=== PATIENT | female | born 1980 | race Caucasian/White ===

== ENCOUNTER 2021-03-25 12:36 | Inpatient (IN) ==
[2021-03-25 13:18] LABS: Bilirubin,Urine Negative (Negative); Blood,Urine Negative (Negative); Clarity,Urine Clear (Clear); Color,Urine Light-Yellow (Yellow); Glucose,Urine (UA) Normal (Normal); Ketones,Urine Negative (Negative); Leukocyte Esterase,Urine Negative (Negative); Nitrite,Urine Negative (Negative); PH,Urine 6.5 pH Units (5.0-8.0); Protein,Urine Negative (Neg-Trace); Specific Gravity,Urine 1.011 (1.010-1.025); Urobilinogen,Urine Normal (Normal)
[2021-03-25 13:28] LABS: Amphetamine Screen,Urine Positive ng/mL (Cutoff=1000); Barbiturate Screen,Urine Negative ng/mL (Cutoff=200); Benzodiazepines Screen,Urine Positive ng/mL (Cutoff=200); Cannabinoid Screen,Urine Negative ng/mL (Cutoff = 50); Cocaine Screen,Urine Negative ng/mL (Cutoff= 300); Opiate Screen,Urine Negative ng/mL (Cutoff=300); Phencyclidine Screen,Urine Negative ng/mL (Cutoff=25)
[2021-03-25 14:17] LABS: Basophils % 0.4 %; Eosinophils # 0.2 K/mcL (0.0-0.6); Hematocrit 43.4 % (35.3-44.9); Hemoglobin 14.9 g/dL (11.5-15.4); Immature Granulocytes % 0.9 % (0-4); Lymphocytes % 30.1 %; Mean Corpuscular HGB Conc 34.3 g/dL (31.6-35.5); Mean Corpuscular Hemoglobin 31.4 pg (28.0-33.3); Mean Corpuscular Volume 91.4 fL (83.0-100.0); Mean Platelet Volume 9.8 fL (9.4-12.4); Monocytes # 0.4 K/mcL (0.0-1.3); Monocytes % 6.6 %; Platelet Count 214 K/mcL (140-400); Red Blood Count 4.75 M/mcL (3.82-4.97); White Blood Count 6.7 K/mcL (4.3-11.1)
[2021-03-25 14:22] LABS: Acetaminophen < 10 mcg/mL (10-20); BUN/Creatinine Ratio 15 (6-26); Blood Urea Nitrogen 15 mg/dL (6-20); Calcium 9.9 mg/dL (8.6-10.3); Carbon Dioxide 28 mEq/L (23-29); Chloride 104 mEq/L (98-107); Chol/HDL Ratio 4.1 (0-4.9); Cholesterol 175 mg/dL (< 200); Ethanol < 10 mg/dL (Less than 10); Glucose 89 mg/dL (70-105); HDL Cholesterol 43 mg/dL (40-59); LDL Cholesterol,Calculated 114 mg/dL (< 100); Osmolality,Calculated 288 (280-300); Potassium 3.7 mEq/L (3.5-5.1); Salicylate < 2.5 mg/dL (15.0-30.0); Sodium 139 mEq/L (136-145); Triglycerides 88 mg/dL (< 150); eGFR For African Americans > 60 (> 60); eGFR For Non-African Americans 59 (> 60)
[2021-03-25 16:16] LABS: Estimated Average Glucose 111 mg/dl; Hemoglobin A1C 5.5 %
[2021-03-25] MEDS ORDERED: Naloxone 0.4 MG/ML INJ IVP PRN (17:14)
[2021-03-25] MEDS ORDERED: Ondansetron 4 MG/2 ML VIAL IVP PRN (17:39)
[2021-03-25] MEDS ORDERED: *HR* Labetalol 20 MG/4 ML SYRINGE IVP PRN (18:16)
[2021-03-25] MEDS: Acetaminophen 325 MG TABLET PO PRN (22:39)
[2021-03-26] MEDS ORDERED: Haloperidol Lactate 5 MG/ML VIAL IVP ONE (02:32)
[2021-03-26 03:30] LABS: Basophils # 0.1 K/mcL (0.0-0.2); Basophils % 0.7 %; Eosinophils # 0.2 K/mcL (0.0-0.6); Eosinophils % 2.7 %; Hematocrit 44.4 % (35.3-44.9); Hemoglobin 14.4 g/dL (11.5-15.4); Immature Granulocytes % 0.1 % (0-4); Lymphocytes # 2.2 K/mcL (0.6-4.6); Lymphocytes % 28.1 %; Mean Corpuscular HGB Conc 32.4 g/dL (31.6-35.5); Mean Corpuscular Hemoglobin 29.8 pg (28.0-33.3); Mean Corpuscular Volume 91.7 fL (83.0-100.0); Mean Platelet Volume 9.8 fL (9.4-12.4); Monocytes # 0.6 K/mcL (0.0-1.3); Neutrophils # 4.6 K/mcL (1.6-8.9); Platelet Count 224 K/mcL (140-400); Red Blood Count 4.84 M/mcL (3.82-4.97); Red Cell Distribution Width 13.1 % (11.5-14.5); Segmented Neutrophils % 60.4 %; White Blood Count 7.6 K/mcL (4.3-11.1)
[2021-03-26 03:48] LABS: BUN/Creatinine Ratio 13 (6-26); Blood Urea Nitrogen 12 mg/dL (6-20); Calcium 9.8 mg/dL (8.6-10.3); Carbon Dioxide 25 mEq/L (23-29); Chloride 104 mEq/L (98-107); Glucose 90 mg/dL (70-105); Magnesium 2.2 mg/dL (1.6-2.6); Osmolality,Calculated 285 (280-300); Potassium 3.7 mEq/L (3.5-5.1); Sodium 138 mEq/L (136-145); eGFR For African Americans > 60 (> 60); eGFR For Non-African Americans > 60 (> 60)
[2021-03-26 03:59] LABS: Thyroid Stimulating Hormone 2.487 mcIU/mL (0.340-5.600)
[2021-03-26] MEDS: *HR* Enoxaparin 40 MG/0.4 ML SYRINGE SQ SCH (09:40)
[2021-03-26] MEDS: Acetaminophen 325 MG TABLET PO PRN ×2 (09:40→19:53)
[2021-03-26] MEDS ORDERED: risperiDONE 1 MG TABLET PO SCH (21:00)
[2021-03-27] MEDS: *HR* Enoxaparin 40 MG/0.4 ML SYRINGE SQ SCH (10:32)
[2021-03-27] MEDS: Acetaminophen 325 MG TABLET PO PRN (19:39)
[2021-03-27] MEDS: Nicotine 21 MG PATCH.TD24 TD SCH (19:40)
[2021-03-27] MEDS ORDERED: risperiDONE 1 MG TABLET PO SCH (21:00)
[2021-03-28 08:46] VITALS: BP 145/81; PULSE 88; TEMP 98; O2SAT 100
[2021-03-28] MEDS ORDERED: Venlafaxine XR (24 HR) 75 MG CAP.ER.24H PO SCH (09:00)
[2021-03-28] MEDS ORDERED: amLODIPine 5 MG TABLET PO SCH (09:30)
[2021-03-28] MEDS: Nicotine 21 MG PATCH.TD24 TD SCH (10:12)
[2021-03-28] MEDS: *HR* Enoxaparin 40 MG/0.4 ML SYRINGE SQ SCH (10:13)
[2021-03-28] MEDS ORDERED: risperiDONE 1 MG TABLET PO SCH (21:00)
== END 2021-03-28 12:55 | DRG 751 ==
LOC: EMEROOARM 12:36 → INTOOBSV 17:24 → SUATTDRO 17:24 → 3BNU 17:24 → 3NENU 19:13
PROVIDERS: ADMIT Pharmacist; ATTEND Pharmacist

== ENCOUNTER 2021-03-28 12:35 | Inpatient (IN) ==
[2021-03-28] MEDS ORDERED: *HR* LORazepam 2 MG/ML VIAL IM PRN (12:44)
[2021-03-28] MEDS ORDERED: *HR* LORazepam 1 MG TABLET PO PRN (12:44)
[2021-03-28] MEDS ORDERED: haloperidoL 5 MG TABLET PO PRN (12:44)
[2021-03-28] MEDS ORDERED: Haloperidol Lactate 5 MG/ML VIAL IM PRN (12:44)
[2021-03-28] MEDS ORDERED: risperiDONE 1 MG TABLET PO SCH (21:00)
[2021-03-28] MEDS: Acetaminophen 325 MG TABLET PO PRN (21:09)
[2021-03-28] MEDS: hydrOXYzine pamoate 25 MG CAPSULE PO PRN (21:10)
[2021-03-28] MEDS: traZODone 50 MG TABLET PO PRN (21:10)
[2021-03-29] MEDS ORDERED: Nicotine 21 MG PATCH.TD24 TD SCH (09:00)
[2021-03-29] MEDS ORDERED: Venlafaxine XR (24 HR) 75 MG CAP.ER.24H PO SCH (09:00)
[2021-03-29] MEDS: amLODIPine 5 MG TABLET PO SCH (09:01)
[2021-03-29] MEDS: Nicotine 21 MG PATCH.TD24 TD SCH (09:02)
[2021-03-29] MEDS: hydrOXYzine pamoate 25 MG CAPSULE PO PRN (20:49)
[2021-03-29] MEDS: risperiDONE 1 MG TABLET PO SCH (20:49)
[2021-03-29] MEDS: Acetaminophen 325 MG TABLET PO PRN (20:49)
[2021-03-29] MEDS: traZODone 50 MG TABLET PO PRN (20:50)
[2021-03-30] MEDS: risperiDONE 1 MG TABLET PO SCH (09:28)
[2021-03-30] MEDS: Nicotine 21 MG PATCH.TD24 TD SCH (09:28)
[2021-03-30] MEDS: amLODIPine 5 MG TABLET PO SCH (09:28)
[2021-03-30 11:59] VITALS: BP 109/87; PULSE 109; TEMP 98.8; O2SAT 97
== END 2021-03-30 14:52 | disposition home or self-care (01) | DRG 751 ==
LOC: 1ANU 12:35
PROVIDERS: ADMIT Psychiatry & Neurology Psychiatry; ATTEND Psychiatry & Neurology Psychiatry

== ENCOUNTER 2021-04-14 13:43 | Inpatient (IN) ==
[2021-04-14 15:26] LABS: Basophils % 0.5 %; Eosinophils # 0.2 K/mcL (0.0-0.6); Eosinophils % 2.7 %; Hematocrit 40.1 % (35.3-44.9); Hemoglobin 13.4 g/dL (11.5-15.4); Immature Granulocytes % 0.4 % (0-4); Lymphocytes # 1.9 K/mcL (0.6-4.6); Lymphocytes % 24.6 %; Mean Corpuscular HGB Conc 33.4 g/dL (31.6-35.5); Mean Corpuscular Hemoglobin 30.9 pg (28.0-33.3); Mean Corpuscular Volume 92.4 fL (83.0-100.0); Mean Platelet Volume 9.4 fL (9.4-12.4); Monocytes # 0.6 K/mcL (0.0-1.3); Platelet Count 216 K/mcL (140-400); Red Blood Count 4.34 M/mcL (3.82-4.97); Red Cell Distribution Width 13.1 % (11.5-14.5); Segmented Neutrophils % 63.8 %; White Blood Count 7.8 K/mcL (4.3-11.1)
[2021-04-14 15:37] LABS: Estimated Average Glucose 111 mg/dl; Hemoglobin A1C 5.5 %
[2021-04-14 15:40] LABS: Bilirubin,Urine Negative (Negative); Blood,Urine Trace (Negative); Clarity,Urine Turbid (Clear); Color,Urine Yellow (Yellow); Glucose,Urine (UA) Normal (Normal); Ketones,Urine Negative (Negative); Leukocyte Esterase,Urine Large (Negative); Mucus,Urine Moderate per lpf (None-Few); Nitrite,Urine Negative (Negative); Protein,Urine 30 mg/dL (Neg-Trace); Specific Gravity,Urine 1.026 (1.010-1.025); Squamous Epithelial Cell,Urine Few per hpf (None-Few); WBC,Urine TNTC per hpf (0-3)
[2021-04-14 15:47] LABS: Amphetamine Screen,Urine Positive ng/mL (Cutoff=1000); Barbiturate Screen,Urine Negative ng/mL (Cutoff=200); Benzodiazepines Screen,Urine Negative ng/mL (Cutoff=200); Cannabinoid Screen,Urine Positive ng/mL (Cutoff = 50); Cocaine Screen,Urine Negative ng/mL (Cutoff= 300); Opiate Screen,Urine Negative ng/mL (Cutoff=300); Phencyclidine Screen,Urine Negative ng/mL (Cutoff=25)
[2021-04-14 16:01] LABS: Acetaminophen < 10 mcg/mL (10-20); BUN/Creatinine Ratio 13 (6-26); Blood Urea Nitrogen 18 mg/dL (6-20); Calcium 9.5 mg/dL (8.6-10.3); Carbon Dioxide 31 mEq/L (23-29); Chloride 101 mEq/L (98-107); Chol/HDL Ratio 4.3 (0-4.9); Cholesterol 167 mg/dL (< 200); Ethanol < 10 mg/dL (Less than 10); Glucose 101 mg/dL (70-105); HDL Cholesterol 39 mg/dL (40-59); LDL Cholesterol,Calculated 103 mg/dL (< 100); Osmolality,Calculated 288 (280-300); Potassium 3.8 mEq/L (3.5-5.1); Salicylate < 2.5 mg/dL (15.0-30.0); Sodium 138 mEq/L (136-145); Triglycerides 126 mg/dL (< 150); Troponin I < 0.03 ng/mL (< 0.04); eGFR For African Americans 52 (> 60); eGFR For Non-African Americans 43 (> 60)
[2021-04-14] MEDS ORDERED: 0.9 % Sodium Chloride 1,000 ML IVC STA (16:17)
[2021-04-14] MEDS ORDERED: cephALEXin 500 MG CAPSULE PO STA (17:18)
[2021-04-14 18:33] LABS: Blood Urea Nitrogen 17 mg/dL (6-20); Carbon Dioxide 23 mEq/L (23-29); Chloride 108 mEq/L (98-107); Glucose 95 mg/dL (70-105); Osmolality,Calculated 285 (280-300); Potassium 3.9 mEq/L (3.5-5.1); Sodium 137 mEq/L (136-145)
[2021-04-14 18:57] LABS: BUN/Creatinine Ratio 15 (6-26); eGFR For African Americans > 60 (> 60); eGFR For Non-African Americans 52 (> 60)
[2021-04-14 21:46] LABS: Influenza A PCR Negative (Negative); Influenza B PCR Negative (Negative); Resp. Syncytial Virus PCR Negative (Negative)
[2021-04-14 21:51] LABS: SARS-CoV-2 by PCR (In House) Negative (Negative)
[2021-04-14] MEDS ORDERED: haloperidoL 5 MG TABLET PO PRN (22:33)
[2021-04-14] MEDS ORDERED: *HR* LORazepam 2 MG/ML VIAL IM PRN (22:33)
[2021-04-14] MEDS ORDERED: hydrOXYzine pamoate 25 MG CAPSULE PO PRN (22:33)
[2021-04-14] MEDS ORDERED: *HR* LORazepam 1 MG TABLET PO PRN (22:33)
[2021-04-14] MEDS ORDERED: Haloperidol Lactate 5 MG/ML VIAL IM PRN (22:33)
[2021-04-15] MEDS: Acetaminophen 325 MG TABLET PO PRN ×2 (00:08→13:12)
[2021-04-15] MEDS: traZODone 50 MG TABLET PO PRN ×2 (00:08→20:40)
[2021-04-15] MEDS: amLODIPine 5 MG TABLET PO SCH (09:21)
[2021-04-15] MEDS: risperiDONE 1 MG TABLET PO SCH ×2 (09:21→20:40)
[2021-04-15] MEDS: Nicotine 21 MG PATCH.TD24 TD SCH (09:30)
[2021-04-15] MEDS ORDERED: MOM Conc 10 ML UD.LIQ PO PRN (09:36)
[2021-04-15] MEDS: Nitrofurantoin (BID) 100 MG CAPSULE PO SCH (17:33)
[2021-04-15] MEDS: hydrOXYzine pamoate 25 MG CAPSULE PO PRN (20:40)
[2021-04-16] MEDS: amLODIPine 5 MG TABLET PO SCH (08:43)
[2021-04-16] MEDS: Nitrofurantoin (BID) 100 MG CAPSULE PO SCH ×2 (08:43→21:18)
[2021-04-16] MEDS: Nicotine 21 MG PATCH.TD24 TD SCH (08:43)
[2021-04-16] MEDS: risperiDONE 1 MG TABLET PO SCH ×2 (08:43→21:18)
[2021-04-16] MEDS: Acetaminophen 325 MG TABLET PO PRN (16:02)
[2021-04-16] MEDS: traZODone 50 MG TABLET PO PRN (21:18)
[2021-04-16] MEDS: hydrOXYzine pamoate 25 MG CAPSULE PO PRN (21:18)
[2021-04-17] MEDS: Nicotine 21 MG PATCH.TD24 TD SCH (08:54)
[2021-04-17] MEDS: amLODIPine 5 MG TABLET PO SCH (08:55)
[2021-04-17] MEDS: Nitrofurantoin (BID) 100 MG CAPSULE PO SCH ×2 (08:55→16:05)
[2021-04-17] MEDS: risperiDONE 1 MG TABLET PO SCH ×2 (08:56→20:15)
[2021-04-17] MEDS: Acetaminophen 325 MG TABLET PO PRN ×2 (11:30→20:16)
[2021-04-17] MEDS: traZODone 50 MG TABLET PO SCH (20:15)
[2021-04-17] MEDS: hydrOXYzine pamoate 25 MG CAPSULE PO PRN (20:16)
[2021-04-18] MEDS: Nicotine 21 MG PATCH.TD24 TD SCH (09:38)
[2021-04-18] MEDS: risperiDONE 1 MG TABLET PO SCH ×2 (09:39→20:43)
[2021-04-18] MEDS: Nitrofurantoin (BID) 100 MG CAPSULE PO SCH ×2 (09:39→16:47)
[2021-04-18] MEDS: amLODIPine 5 MG TABLET PO SCH (09:40)
[2021-04-18] MEDS: Mag Hydrox/Al Hydrox/Simeth 30 ML UDC PO PRN (19:46)
[2021-04-18] MEDS: hydrOXYzine pamoate 25 MG CAPSULE PO PRN (20:43)
[2021-04-18] MEDS: traZODone 50 MG TABLET PO SCH (20:43)
[2021-04-18] MEDS: Acetaminophen 325 MG TABLET PO PRN (20:44)
[2021-04-19] MEDS: Nicotine 21 MG PATCH.TD24 TD SCH (08:59)
[2021-04-19] MEDS: Acetaminophen 325 MG TABLET PO PRN ×2 (08:59→15:21)
[2021-04-19] MEDS: risperiDONE 1 MG TABLET PO SCH ×2 (09:00→20:46)
[2021-04-19] MEDS: Nitrofurantoin (BID) 100 MG CAPSULE PO SCH ×2 (09:00→16:46)
[2021-04-19] MEDS: amLODIPine 5 MG TABLET PO SCH (09:00)
[2021-04-19] MEDS ORDERED: Ibuprofen 800 MG TABLET PO PRN (10:22)
[2021-04-19] MEDS: Mag Hydrox/Al Hydrox/Simeth 30 ML UDC PO PRN (15:21)
[2021-04-19] MEDS: traZODone 50 MG TABLET PO SCH (20:45)
[2021-04-19 22:21] VITALS: BP 101/70; PULSE 98; TEMP 97.8; O2SAT 91
[2021-04-20] MEDS: Nicotine 21 MG PATCH.TD24 TD SCH (08:06)
[2021-04-20] MEDS: amLODIPine 5 MG TABLET PO SCH (08:06)
[2021-04-20] MEDS: risperiDONE 1 MG TABLET PO SCH (08:06)
[2021-04-20] MEDS: Nitrofurantoin (BID) 100 MG CAPSULE PO SCH (08:06)
== END 2021-04-20 09:45 | disposition home or self-care (01) | DRG 751 ==
LOC: EMEROOARM 13:43 → 1ANU 22:32
PROVIDERS: ADMIT Psychiatry & Neurology Psychiatry; ATTEND Psychiatry & Neurology Psychiatry

== ENCOUNTER 2021-06-26 18:24 | Inpatient (IN) ==
[2021-06-26 20:00] LABS: Basophils # 0.1 K/mcL (0.0-0.2); Basophils % 0.6 %; Eosinophils # 0.2 K/mcL (0.0-0.6); Eosinophils % 2.7 %; Hematocrit 46.9 % (35.3-44.9); Hemoglobin 15.5 g/dL (11.5-15.4); Immature Granulocytes % 0.4 % (0-4); Lymphocytes % 23.8 %; Mean Corpuscular Hemoglobin 29.8 pg (28.0-33.3); Mean Corpuscular Volume 90.2 fL (83.0-100.0); Mean Platelet Volume 9.7 fL (9.4-12.4); Monocytes # 0.8 K/mcL (0.0-1.3); Neutrophils # 5.4 K/mcL (1.6-8.9); Platelet Count 209 K/mcL (140-400); Red Cell Distribution Width 11.9 % (11.5-14.5); Segmented Neutrophils % 63.5 %; White Blood Count 8.4 K/mcL (4.3-11.1)
[2021-06-26 20:08] LABS: Estimated Average Glucose 111 mg/dl; Hemoglobin A1C 5.5 %
[2021-06-26 20:20] LABS: Acetaminophen < 10 mcg/mL (10-20); BUN/Creatinine Ratio 15 (6-26); Blood Urea Nitrogen 17 mg/dL (6-20); Calcium 10.3 mg/dL (8.6-10.3); Carbon Dioxide 26 mEq/L (23-29); Chloride 103 mEq/L (98-107); Chol/HDL Ratio 4.7 (0-4.9); Cholesterol 199 mg/dL (< 200); Ethanol < 10 mg/dL (Less than 10); Glucose 94 mg/dL (70-105); HDL Cholesterol 42 mg/dL (40-59); LDL Cholesterol,Calculated 133 mg/dL (< 100); Osmolality,Calculated 289 (280-300); Potassium 4.1 mEq/L (3.5-5.1); Sodium 139 mEq/L (136-145); Triglycerides 118 mg/dL (< 150); eGFR For African Americans > 60 (> 60); eGFR For Non-African Americans 51 (> 60)
[2021-06-26 20:40] LABS: Salicylate < 2.5 mg/dL (15.0-30.0)
[2021-06-26 20:49] LABS: Bilirubin,Urine Negative (Negative); Blood,Urine Negative (Negative); Clarity,Urine Clear (Clear); Color,Urine Yellow (Yellow); Glucose,Urine (UA) Normal (Normal); Ketones,Urine Negative (Negative); Leukocyte Esterase,Urine Trace (Negative); Mucus,Urine Few per lpf (None-Few); Nitrite,Urine Negative (Negative); PH,Urine 6.5 pH Units (5.0-8.0); Protein,Urine 30 mg/dL (Neg-Trace); RBC,Urine 0-3 per hpf (0-3); Specific Gravity,Urine 1.029 (1.010-1.025); Squamous Epithelial Cell,Urine Moderate per hpf (None-Few)
[2021-06-26 20:57] LABS: Amphetamine Screen,Urine Positive ng/mL (Cutoff=1000); Barbiturate Screen,Urine Negative ng/mL (Cutoff=200); Benzodiazepines Screen,Urine Negative ng/mL (Cutoff=200); Cannabinoid Screen,Urine Positive ng/mL (Cutoff = 50); Cocaine Screen,Urine Negative ng/mL (Cutoff= 300); Opiate Screen,Urine Negative ng/mL (Cutoff=300); Phencyclidine Screen,Urine Negative ng/mL (Cutoff=25)
[2021-06-26 21:32] LABS: Influenza A PCR Negative (Negative); Influenza B PCR Negative (Negative); Resp. Syncytial Virus PCR Negative (Negative)
[2021-06-26 21:35] LABS: SARS-CoV-2 by PCR (In House) Negative (Negative)
[2021-06-26 22:52] LABS: Thyroid Stimulating Hormone 1.878 mcIU/mL (0.340-5.600)
[2021-06-26] MEDS ORDERED: Haloperidol Lactate 5 MG/ML VIAL IM PRN (23:03)
[2021-06-26] MEDS ORDERED: haloperidoL 5 MG TABLET PO PRN (23:03)
[2021-06-27] MEDS: traZODone 50 MG TABLET PO PRN ×2 (00:36→20:56)
[2021-06-27] MEDS: Acetaminophen 325 MG TABLET PO PRN ×2 (00:36→09:54)
[2021-06-27] MEDS: amLODIPine 5 MG TABLET PO SCH (10:36)
[2021-06-27] MEDS: risperiDONE 1 MG TABLET PO SCH ×2 (10:36→20:56)
[2021-06-27] MEDS: Venlafaxine XR (24 HR) 37.5 MG CAP.ER.24H PO SCH (10:36)
[2021-06-27] MEDS: hydrOXYzine pamoate 25 MG CAPSULE PO PRN ×2 (18:22→20:56)
[2021-06-28] MEDS: Venlafaxine XR (24 HR) 37.5 MG CAP.ER.24H PO SCH (08:40)
[2021-06-28] MEDS: risperiDONE 1 MG TABLET PO SCH (08:40)
[2021-06-28] MEDS: amLODIPine 5 MG TABLET PO SCH (08:40)
[2021-06-28] MEDS: hydrOXYzine pamoate 25 MG CAPSULE PO PRN ×2 (10:47→20:21)
[2021-06-28] MEDS: traZODone 50 MG TABLET PO PRN (20:21)
[2021-06-28] MEDS: Acetaminophen 325 MG TABLET PO PRN (20:24)
[2021-06-28] MEDS ORDERED: OLANZapine 5 MG TAB.RAPDIS PO SCH (21:00)
[2021-06-28 21:14] LABS: Bilirubin,Urine Negative (Negative); Blood,Urine Negative (Negative); Clarity,Urine Clear (Clear); Color,Urine Light-Yellow (Yellow); Glucose,Urine (UA) Normal (Normal); Ketones,Urine Negative (Negative); Leukocyte Esterase,Urine Negative (Negative); Nitrite,Urine Negative (Negative); Protein,Urine Trace mg/dL (Neg-Trace); Specific Gravity,Urine > 1.030 (1.010-1.025); Urobilinogen,Urine Normal (Normal)
[2021-06-29] MEDS: amLODIPine 5 MG TABLET PO SCH (09:24)
[2021-06-29] MEDS: FLUoxetine HCl 10 MG CAPSULE PO SCH (09:24)
[2021-06-29] MEDS: hydrOXYzine pamoate 25 MG CAPSULE PO PRN ×2 (09:26→20:52)
[2021-06-29] MEDS: OLANZapine 5 MG TAB.RAPDIS PO SCH ×2 (09:58→20:52)
[2021-06-29] MEDS: Acetaminophen 325 MG TABLET PO PRN (20:52)
[2021-06-29] MEDS: traZODone 50 MG TABLET PO PRN (20:52)
[2021-06-30] MEDS: amLODIPine 5 MG TABLET PO SCH (09:10)
[2021-06-30] MEDS: FLUoxetine HCl 10 MG CAPSULE PO SCH (09:10)
[2021-06-30] MEDS: OLANZapine 5 MG TAB.RAPDIS PO SCH ×2 (09:10→20:00)
[2021-06-30] MEDS: hydrOXYzine pamoate 25 MG CAPSULE PO PRN ×2 (14:20→20:00)
[2021-06-30] MEDS: traZODone 50 MG TABLET PO PRN (20:00)
[2021-07-01] MEDS: OLANZapine 5 MG TAB.RAPDIS PO SCH (09:09)
[2021-07-01] MEDS: FLUoxetine HCl 10 MG CAPSULE PO SCH (09:09)
[2021-07-01] MEDS: amLODIPine 5 MG TABLET PO SCH (09:10)
[2021-07-01 10:30] VITALS: BP 114/83; PULSE 93; TEMP 98.2; O2SAT 100
[2021-07-01] MEDS: hydrOXYzine pamoate 25 MG CAPSULE PO PRN (11:24)
[2021-07-01] MEDS ORDERED: FLU Vac QV 21-22 (6Month+)/PF 0.5 ML SYRINGE IM ONE (14:21)
== END 2021-07-01 16:05 | disposition home or self-care (01) | DRG 751 ==
LOC: EMEROOARM 18:24 → 1ANU 23:32
PROVIDERS: ADMIT Psychiatry & Neurology Psychiatry; ATTEND Psychiatry & Neurology Psychiatry

== ENCOUNTER 2022-06-22 19:11 | Inpatient (IN) ==
[2022-06-22 20:25] LABS: Basophils # 0.1 K/mcL (0.0-0.2); Basophils % 0.8 %; Eosinophils # 0.4 K/mcL (0.0-0.6); Eosinophils % 3.8 %; Hematocrit 42.8 % (35.3-44.9); Hemoglobin 14.4 g/dL (11.5-15.4); Immature Granulocytes % 0.3 % (0-4); Lymphocytes # 3.7 K/mcL (0.6-4.6); Lymphocytes % 31.9 %; Mean Corpuscular HGB Conc 33.6 g/dL (31.6-35.5); Mean Corpuscular Hemoglobin 29.5 pg (28.0-33.3); Mean Corpuscular Volume 87.7 fL (83.0-100.0); Mean Platelet Volume 10.6 fL (9.4-12.4); Monocytes # 0.9 K/mcL (0.0-1.3); Neutrophils # 6.4 K/mcL (1.6-8.9); Platelet Count 284 K/mcL (140-400); Red Blood Count 4.88 M/mcL (3.82-4.97); Red Cell Distribution Width 13.7 % (11.5-14.5); Segmented Neutrophils % 55.2 %; White Blood Count 11.5 K/mcL (4.3-11.1)
[2022-06-22 20:28] LABS: Bilirubin,Urine Negative (Negative); Blood,Urine Negative (Negative); Clarity,Urine Clear (Clear); Color,Urine Light-Yellow (Yellow); Glucose,Urine (UA) Normal (Normal); Hyaline Casts,Urine Few per lpf (None Seen); Ketones,Urine Negative (Negative); Leukocyte Esterase,Urine Small (Negative); Mucus,Urine Few per lpf (None-Few); Nitrite,Urine Negative (Negative); Protein,Urine Negative (Neg-Trace); RBC,Urine 0-3 per hpf (0-3); Specific Gravity,Urine 1.016 (1.010-1.025); Squamous Epithelial Cell,Urine Few per hpf (None-Few); Urobilinogen,Urine Normal (Normal)
[2022-06-22 20:33] LABS: Amphetamine Screen,Urine Negative ng/mL (Cutoff=1000); Barbiturate Screen,Urine Negative ng/mL (Cutoff=200); Benzodiazepines Screen,Urine Negative ng/mL (Cutoff=200); Cannabinoid Screen,Urine Negative ng/mL (Cutoff = 50); Cocaine Screen,Urine Negative ng/mL (Cutoff= 300); Opiate Screen,Urine Negative ng/mL (Cutoff=300); Phencyclidine Screen,Urine Negative ng/mL (Cutoff=25)
[2022-06-22 20:48] LABS: Acetaminophen < 10 mcg/mL (10-20); Alanine Aminotransferase 7 Units/L (7-52); Albumin 4.3 g/dL (3.5-5.7); Albumin/Globulin Ratio 1.5 (1.1-2.2); Alkaline Phosphatase 74 Units/L (34-104); Aspartate Amino Transferase 9 Units/L (13-39); BUN/Creatinine Ratio 18 (6-26); Bilirubin,Indirect 0.3 mg/dL (0.0-1.0); Bilirubin,Total 0.3 mg/dL (0.3-1.0); Blood Urea Nitrogen 19 mg/dL (6-20); Calcium 9.9 mg/dL (8.6-10.3); Carbon Dioxide 27 mEq/L (23-29); Chloride 105 mEq/L (98-107); Chol/HDL Ratio 7.5 (0-4.9); Cholesterol 307 mg/dL (< 200); Ethanol < 10 mg/dL (Less than 10); Globulin 2.8 g/dL (2.4-3.5); Glucose 94 mg/dL (70-105); HDL Cholesterol 41 mg/dL (40-59); LDL Cholesterol,Calculated 223 mg/dL (< 100); Osmolality,Calculated 288 (280-300); Potassium 3.7 mEq/L (3.5-5.1); Salicylate < 2.5 mg/dL (15.0-30.0); Sodium 138 mEq/L (136-145); Total Protein 7.1 g/dL (6.4-8.9); Triglycerides 217 mg/dL (< 150)
[2022-06-22 21:00] LABS: Thyroid Stimulating Hormone 0.752 mcIU/mL (0.340-5.600)
[2022-06-22 21:35] LABS: Estimated Average Glucose 103 mg/dl; Hemoglobin A1C 5.2 %
[2022-06-22 23:08] LABS: Influenza A PCR Negative (Negative); Influenza B PCR Negative (Negative); Resp. Syncytial Virus PCR Negative (Negative)
[2022-06-22 23:09] LABS: SARS-CoV-2 by PCR (In House) Negative (Negative)
[2022-06-23] MEDS ORDERED: traZODone 50 MG TABLET PO PRN (00:03)
[2022-06-23] MEDS ORDERED: *HR* LORazepam 2 MG/ML VIAL IM PRN (00:03)
[2022-06-23] MEDS ORDERED: haloperidoL 5 MG TABLET PO PRN (00:03)
[2022-06-23] MEDS ORDERED: Haloperidol Lactate 5 MG/ML VIAL IM PRN (00:03)
[2022-06-23] MEDS ORDERED: *HR* LORazepam 1 MG TABLET PO PRN (00:03)
[2022-06-23] MEDS: Nicotine 21 MG PATCH.TD24 TD SCH (08:37)
[2022-06-23] MEDS: Ibuprofen 400 MG TABLET PO PRN (10:19)
[2022-06-23] MEDS ORDERED: MOM Conc 10 ML UD.LIQ PO PRN (14:32)
[2022-06-23] MEDS ORDERED: Mag Hydrox/Al Hydrox/Simeth 30 ML UDC PO PRN (14:32)
[2022-06-23] MEDS: FLUoxetine HCl 10 MG CAPSULE PO SCH (14:49)
[2022-06-23] MEDS: OLANZapine 5 MG TAB.RAPDIS PO SCH (20:44)
[2022-06-23] MEDS: hydrOXYzine pamoate 25 MG CAPSULE PO PRN (20:45)
[2022-06-24] MEDS: OLANZapine 5 MG TAB.RAPDIS PO SCH ×2 (09:29→20:17)
[2022-06-24] MEDS: FLUoxetine HCl 10 MG CAPSULE PO SCH (09:29)
[2022-06-24] MEDS: Nicotine 21 MG PATCH.TD24 TD SCH (09:29)
[2022-06-24] MEDS: hydrOXYzine pamoate 25 MG CAPSULE PO PRN (09:36)
[2022-06-24] MEDS: hydrOXYzine pamoate 25 MG CAPSULE PO SCH ×2 (15:21→20:17)
[2022-06-24] MEDS: Melatonin 3 MG TABLET PO SCH (20:17)
[2022-06-25] MEDS ORDERED: Nicotine 2 MG GUM BC PRN (08:21)
[2022-06-25] MEDS: hydrOXYzine pamoate 25 MG CAPSULE PO SCH ×3 (08:39→20:38)
[2022-06-25] MEDS: FLUoxetine HCl 10 MG CAPSULE PO SCH (08:40)
[2022-06-25] MEDS: OLANZapine 10 MG TAB.RAPDIS PO SCH (08:42)
[2022-06-25] MEDS: amLODIPine 5 MG TABLET PO SCH (08:43)
[2022-06-25] MEDS: Nicotine 21 MG PATCH.TD24 TD SCH (08:44)
[2022-06-25] MEDS: Melatonin 3 MG TABLET PO SCH (20:38)
[2022-06-25] MEDS: OLANZapine 5 MG TAB.RAPDIS PO SCH (20:38)
[2022-06-25] MEDS: QUEtiapine Fumarate 25 MG TABLET PO PRN (20:41)
[2022-06-26] MEDS ORDERED: Flu Vac QV 22-23 (6MOS UP)/PF 0.5 ML SYRINGE IM ONE (08:15)
[2022-06-26] MEDS ORDERED: Moderna Covid-19 Vaccine 100MCG/0.5mL IM ONE (08:16)
[2022-06-26] MEDS: Nicotine 21 MG PATCH.TD24 TD SCH (08:27)
[2022-06-26] MEDS: hydrOXYzine pamoate 25 MG CAPSULE PO SCH ×3 (08:29→20:29)
[2022-06-26] MEDS: OLANZapine 10 MG TAB.RAPDIS PO SCH (08:30)
[2022-06-26] MEDS: FLUoxetine 20 MG CAPSULE PO SCH (08:30)
[2022-06-26] MEDS: amLODIPine 5 MG TABLET PO SCH (08:30)
[2022-06-26] MEDS: QUEtiapine Fumarate 25 MG TABLET PO PRN (20:29)
[2022-06-26] MEDS: Melatonin 3 MG TABLET PO SCH (20:29)
[2022-06-26] MEDS: OLANZapine 5 MG TAB.RAPDIS PO SCH (20:29)
[2022-06-27] MEDS: Nicotine 21 MG PATCH.TD24 TD SCH (08:07)
[2022-06-27] MEDS: FLUoxetine 20 MG CAPSULE PO SCH (08:08)
[2022-06-27] MEDS: hydrOXYzine pamoate 25 MG CAPSULE PO SCH ×3 (08:08→20:19)
[2022-06-27] MEDS: OLANZapine 10 MG TAB.RAPDIS PO SCH (08:09)
[2022-06-27] MEDS: amLODIPine 5 MG TABLET PO SCH (08:09)
[2022-06-27] MEDS: Ibuprofen 400 MG TABLET PO PRN (16:17)
[2022-06-27 19:42] VITALS: BP 133/88; PULSE 107; TEMP 98.7; O2SAT 97
[2022-06-27] MEDS: QUEtiapine Fumarate 25 MG TABLET PO PRN (20:19)
[2022-06-27] MEDS: Melatonin 3 MG TABLET PO SCH (20:19)
[2022-06-27] MEDS ORDERED: OLANZapine 10 MG TAB.RAPDIS PO SCH (21:00)
[2022-06-28] MEDS ORDERED: OLANZapine 5 MG TAB.RAPDIS PO SCH (09:00)
== END 2022-06-27 23:59 | disposition home or self-care (01) | DRG 751 ==
LOC: EMEROOARM 19:11 → 1ANU 23:53
PROVIDERS: ADMIT Psychiatry & Neurology Psychiatry; ATTEND Psychiatry & Neurology Psychiatry